=== PATIENT | female | born 1980 | race Caucasian/White ===

== ENCOUNTER → 2017-11-01 | Outpatient (CLI) | payer OTHER ==
[~2017-11-01] MED LIST: BUPR75TA PO; CYCL10TA PO; DICL75TA PO; HYDR-3583 PO; LYRI100C PO; PARO10TA2 PO; PERC10TA27 PO; PERC5TAB12 PO; PROZ20CA11 PO; SERO50TA PO; TIZA4TAB PO; TRAM50TA PO; TRAZ100T10 PO; XANA1TAB2 PO
== END ==
LOC: CPRE 11:35
PROVIDERS: ATTEND Neurological Surgery
DX: Z01.812 Encounter for preprocedural laboratory examination (principal); M50.10 Cervical disc disorder with radiculopathy, unspecified cervical region
CPT/HCPCS: 87640; 87641

== ENCOUNTER 2017-11-07 06:00 | Observation (INO) | payer OTHER ==
--- NOTE | 2017-11-06 17:30 | MH ---
cc: Kyle Brady MD, Rohit K MD DATE OF ADMISSION: 11/07/2017 DATE OF ADMISSION: 11/07/2017 ADMITTING DIAGNOSIS: Cervical radiculopathy, herniated nucleus pulposus cervical spine. HISTORY OF PRESENT ILLNESS: This is a 36-year-old female who presented to us for an evaluation of neck pain that she has had for a year without any inciting event and she states that she woke up with it. The pain radiates from her neck into the left shoulder blade area with burning and paresthesias. She also has pain that radiates into the left lateral arm, into the left anterior forearm with burning and tingling also into the fourth and fifth fingers. She has noticed weakness in the left upper extremity. She denies any bowel or bladder incontinence. She denies any difficulty with her gait. She has noticed some numbness in the right shoulder blade area, but no pain. She is right-handed. She has been to Pain Management and had injection, but states that her symptoms were a little worse after this and she held off on further injections until she saw Neurosurgery. She has been to physical therapy and has not had much relief. She has tried taking Percocet with some relief. She has tried Lyrica, which did not help. The patient is wanting to proceed with surgical intervention. PAST MEDICAL HISTORY: Positive for: 1. Depression. 2. Headaches. 3. Tubal ligation in 2004. CURRENT MEDICATIONS: 1. Alprazolam 1 mg p.o. q. 8 hours p.r.n. anxiety. 2. Trazodone 100 mg p.o. at bedtime. 3. Tizanidine 4 mg 3 times a day p.r.n. muscle spasms. 4. Paroxetine 10 mg p.o. daily. 5. [place] 10/325 p.o. every 6 hours p.r.n. pain. 6. Diclofenac 75 mg p.o. daily. ALLERGIES: SHE HAS NO KNOWN DRUG ALLERGIES. FAMILY HISTORY: Her father is alive, 50 years old, has lung cancer. Mother is at 38 years old of lung cancer. She has a brother who is alive, 27 years old and in good health. She has a sister who is alive, 38 years old in good health. 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 She is single. She has 3 kids. She smokes 1/2 a pack a day for 20 years. She rarely drinks alcohol. REVIEW OF SYSTEMS: CONSTITUTIONAL: She denies any fever or chills. EARS, NOSE AND THROAT: No pharyngitis, exudate or bloody drainage from her nose. CARDIOVASCULAR: Denies any chest pain or palpitations. RESPIRATORY: No cough or shortness of breath. GENITOURINARY: No dysuria or hematuria. MUSCULOSKELETAL: Positive for neck pain, adenopathy. SKIN: No rashes or pruritus. NEUROLOGIC: No difficulty with speech or memory. GASTROINTESTINAL: No nausea, vomiting, abdominal pain. PSYCHIATRIC: Positive for anxiety and depression symptoms. ENDOCRINE: No polyuria or polydipsia. HEMATOLOGIC: No bruising or bleeding tendencies. PHYSICAL EXAMINATION: HEENT: Head is normocephalic, atraumatic. NECK: Supple. No carotid bruits heard on auscultation. LUNGS: Clear to auscultation bilaterally. HEART: Regular rate and rhythm. Normal S1, S2. ABDOMEN: Soft, nontender, positive bowel sounds. EXTREMITIES: No cyanosis or erythema. MUSCULOSKELETAL: She has 5/5 strength in the upper extremities. She ambulates without any assistive device. She does have 4/5 strength in the left upper extremity. NEUROLOGIC: She is awake, alert, and oriented. Cranial nerves 2-12 are grossly intact. Speech is fluent. Comprehension is good. Sensation reveals hypersensitivity in the left 4th and 5th fingers otherwise intact in the upper and lower extremities. Reflexes are brisk in the upper and lower extremities. DATA: Reviewed an MRI of the cervical spine from 05/2017, which reveals a disk osteophyte complex with foraminal stenosis at C5-C6, a lesser degree of protrusions at the C4-C5 and C6-C7 levels. There is also kyphosis at C5-C6 from disk degeneration. She has a history of left ulnar neuropathy as well as lumbar disk protrusion and associated low back pain with left L5 radiculopathy. PLAN: We have discussed treatment options and the patient is wanting to proceed with surgical intervention. We have discussed with her an anterior C5-C6 microdiscectomy, a fusion and a foraminotomy as well as the risks, benefits, alternatives, and recovery time and agreed to do with the patient. We discussed the risks of surgery include but are not limited to bleeding, infection, muscle weakness, voice hoarseness, difficulty swallowing, heart attack, stroke, blood clots, nonfusion, scar tissue formation, among others. We have also discussed that this will not address her left ulnar neuropathy or low back pain with left L5 radiculopathy. No guarantees were given as to the results of the surgery. The patient understands that she may require a left ulnar nerve decompression if her symptoms progress from the ulnar neuropathy. The patient was in agreement with the treatment plan and she was therefore scheduled accordingly. MD James Merritt, PETE MARIN/VIKAS , 04:48 PM , 05:29 PM
[~2017-11-07] VITALS: Ht 166.4 cm; Wt 74.6 kg
[~2017-11-07 06:00] MED LIST changes: -CYCL10TA PO; -DICL75TA PO; -HYDR-3583 PO; -PARO10TA2 PO; -PERC10TA27 PO; -TIZA4TAB PO; -TRAZ100T10 PO
[2017-11-07] MEDS ORDERED: ACETAMINOPHEN 1000 MG/100 ML 100 ML IV ONE (06:38)
[2017-11-07] MEDS ORDERED: SODIUM CHLORID 0.9% 500 ML IV PRN (06:45)
[2017-11-07] MEDS ORDERED: LACTATED RINGER'S 1000 ML IV PRN (06:45)
[2017-11-07] MEDS ORDERED: CHLORHEXIDINE GLUCONATE 2 % 1 PACK (2 CLOTHS) TOPICAL PRN (06:45)
[2017-11-07] MEDS ORDERED: POVIDONE IODINE 5% (ANTISEPSIS KIT) 4 APPLICATIONS EACH NARE PRN (06:45)
[2017-11-07] MEDS ORDERED: METOPROLOL TARTRATE 25 MG TAB PO PRN (06:45)
[2017-11-07] MEDS ORDERED: VANCOMYCIN 1 GM/200 ML PREMIX ON-CALL IV SCH (07:00)
[2017-11-07] MEDS ORDERED: VANCOMYCIN HCL 1000 MG VIAL ONE (07:01)
[2017-11-07] MEDS ORDERED: THROMBIN (TOPICAL) 5,000 UNIT VIAL ONE (07:01)
[2017-11-07] MEDS ORDERED: GELFOAM SIZE 100 ONE (07:01)
[2017-11-07] MEDS ORDERED: PROPOFOL 500 MG/50 ML INJ 150 ML ONE (07:25)
[2017-11-07] MEDS: SODIUM CHLOR 0.9% 1000 ML INJ 1,000 ML IV SCH (11:13)
[2017-11-07] MEDS ORDERED: *MEPERIDINE 25 MG INJ VIAL PERIprocedural Use ONLY ONE (11:22)
[2017-11-07] MEDS ORDERED: NS + KCL 20 MEQ INJ 1,000 ML IV SCH (11:22)
[2017-11-07] MEDS ORDERED: MIDAZOLAM HCL 2 MG/2 ML VIAL ONE (11:22)
[2017-11-07] MEDS ORDERED: MORPHINE SULFATE 4 MG/ML INJ ONE (11:23)
[2017-11-07] MEDS ORDERED: ALPRAZolam 1 MG TAB PO PRN (11:30)
[2017-11-07] MEDS ORDERED: oxyCODONE/ACETAMINOPHEN 10 MG/325 MG TAB PO PRN (11:30)
[2017-11-07] MEDS ORDERED: SODIUM CHLORIDE 0.9% FLUSH 10 ML FLUSH IV FLUSH PRN (11:30)
[2017-11-07] MEDS ORDERED: cloNIDine HCL 0.1 MG TAB PO PRN (11:30)
[2017-11-07] MEDS ORDERED: ZOLPIDEM TARTRATE 5 MG TAB PO PRN (11:30)
[2017-11-07] MEDS ORDERED: LACTULOSE SYRUP 20 GM/30 ML CUP PO PRN (11:30)
[2017-11-07] MEDS ORDERED: RESP: ALBUTEROL 2.5 MG/3 ML NEB (PRN) NEB (11:30)
[2017-11-07] MEDS ORDERED: BISACODYL 10 MG SUPP RECTAL PRN (11:30)
[2017-11-07] MEDS ORDERED: MENTHOL LOZENGE BUCCAL PRN (11:30)
[2017-11-07] MEDS ORDERED: PROMETHAZINE INJ 25 MG/ML VIAL IM PRN (11:30)
[2017-11-07] MEDS ORDERED: ONDANSETRON HCL 4 MG/2 ML VIAL IV PUSH PRN (11:30)
[2017-11-07] MEDS ORDERED: ALUMINUM/MAGNESIUM/SIMETH 30 ML CUP PO PRN (11:30)
[2017-11-07] MEDS ORDERED: ACETAMINOPHEN 325 MG TAB PO PRN (11:30)
[2017-11-07] MEDS ORDERED: MAGNESIUM HYDROXIDE SUSP 30 ML CUP PO PRN (11:30)
[2017-11-07] MEDS ORDERED: SENNOSIDES 8.6 MG TAB PO PRN (11:30)
--- NOTE | 2017-11-07 11:30 | PD.OP ---
Jacinta Payne MD Operative Report Date of Surgery: November 07, 2017 Preoperative Diagnosis: Intractable neck pain with left C6 radiculopathy; C5-6 disc osteophyte complex with associated spinal and foraminal stenosis Postoperative Diagnosis: Same Procedure: Anterior cervical C5-6 microdiscectomy with interbody fusion; anterior C5-6 cervical plate placement; C5-6 interbody cage placement; microsurgical technique Anesthesia: General endotracheal by Cherie perez Surgeon: Kyle Brady MD Geospatial Applications Developer(s): Lisa Wong Operation and Findings: Following administration of general endotracheal anesthesia, the patient received a gram of vancomycin and Decadron 8 mg intravenously. Sequential compression devices were placed in supine position on a López table and all pressure points adequately padded. The head secured in a donut and anterior cervical region then shaved and prepped with Chloraprep and sterilely draped with Ioban along with the usual sterile draping. A transverse skin incision on the left side of the neck was then made after infiltrating the skin with 0.5% Marcaine with epinephrine solution extending down through the platysma. At the anterior border of the sternocleidomastoid further dissection was undertaken developing a plane between the carotid sheath laterally and the trachea esophagus medially. The prevertebral fascia was exposed and dissected out. The medial attachments of the longus colli muscles were detached and a self- retaining retractor used for exposure. The C5-6 disc space was localized with a marking the disc space and using lateral fluoroscopy. [place] distraction screws 14 mm length were placed one in the C5 and one in the C6 body interbody distraction and exposure. There was disc degeneration with disc height collapse and anterior osteophytes noted at the C5-6 level and the osteophytes were resected with a Leksell and annulus incised with a 15 blade and further dissection undertaken using microtechnique with microscope magnification. Diskectomy was undertaken with pituitaries and the endplates were also decorticated with curettes and drill bit. And more posteriorly there was disk osteophyte complex compressing the thecal sac along with a significant uncovertebral joint hypertrophy with foraminal stenosis particularly on the left side which was decompressed along with removal of the posterior longitudinal ligaments at both levels. The foramen was decompressed bilaterally using a Kerrison's and palpation with a nerve hook, the exiting nerve roots were felt to be free. The area was then copiously irrigated. I then placed a Peek cage packed with local autograft bone at the C5-6 interspace under fluoroscopy guidance. [place] distraction pins were removed and the holes plugged with Gelfoam for hemostasis. In order to facilitate the fusion and provide stabilization, a Precision spine solo cervical plate was then placed with a 14 mm variable angle screw in the C5 body and a 14 mm fixed angle screw in the C6 body. The plate screw locking mechanism was then engaged. AP and lateral fluoroscopy confirmed good placement of the construct and the retractor was then removed. Muscular bleeding points were cauterized with bipolar cautery and Gelfoam was then also used for hemostasis which was removed. The platysma was then approximated using 3-0 Vicryl interrupted stitches and 3-0 Vicryl subcuticular stitch also placed in an interrupted fashion, and final skin closure was with Mastisol and Steri-Strips. Sterile dressing was then applied. The patient was then extubated and taken to the recovery room. There are no intraoperative complications and all sponge and needle counts were correct at the end of procedure. Estimated blood loss was about 25 cc. The patient did undergo intraoperative neurologic monitoring which remained stable throughout the surgery. Kyle Brady MD November 07, 2017 11:29
[2017-11-07] MEDS ORDERED: LIDOCAINE HCL 1% PF 5 ML SYRINGE OTHER ONE (12:00)
[2017-11-07] MEDS ORDERED: PROPOFOL 200 MG/20 ML AMP IV ONE (12:00)
[2017-11-07] MEDS ORDERED: DEXAMETHASONE SOD PHOS 4 MG/ML VIAL IV ONE (12:00)
[2017-11-07] MEDS ORDERED: LACTATED RINGER'S 1000 ML INJ 1,000 ML IV ONE (12:00)
[2017-11-07] MEDS ORDERED: SUCCINYLCHOLINE CHLORIDE 100 MG/5 ML SYRINGE IV PUSH ONE (12:00)
[2017-11-07] MEDS ORDERED: ONDANSETRON HCL 4 MG/2 ML VIAL IV ONE (12:00)
[2017-11-07] MEDS ORDERED: ROCURONIUM INJ 50 MG/5 ML SYRINGE IV PUSH ONE (12:00)
[2017-11-07] MEDS ORDERED: *morphine SULFATE 4 MG/ML PERIprocedure ONLY ONE ×2 (12:13→13:03)
[2017-11-07 12:40] VITALS: BP 108/60; PULSE 78; RESP 20; TEMP 98.2; O2SAT 96
[2017-11-07] MEDS ORDERED: DO NOT ADM ANY ANTICOAGULANT DRUGS PRN (14:15)
[2017-11-07] MEDS: DEXAMETHASONE SOD PHOS 4 MG/ML VIAL IV PUSH SCH ×2 (14:27→19:46)
[2017-11-07] MEDS: CYCLOBENZAPRINE HCL 10 MG TAB PO PRN (14:28)
[2017-11-07] MEDS: oxyCODONE/ACETAMINOPHEN 10 MG/325 MG TAB PO PRN ×2 (14:29→19:16)
[2017-11-07 16:00] VITALS: BP 109/57; PULSE 77; RESP 20; TEMP 97.7; O2SAT 95
[2017-11-07] MEDS: MORPHINE SULFATE 4 MG/ML INJ IV PUSH PRN ×2 (17:28→21:21)
--- NOTE | 2017-11-07 18:33 | RADRPT ---
EXAM DATE/TIME: 11/07/2017 08:46 [facility] COMPARISON: No previous studies available for comparison. INDICATIONS : C5-6 Anterior cervical disc fusion. MEDICAL HISTORY : Arthritis. Gastroesophageal reflux disease. SURGICAL HISTORY : Tubal ligation. ENCOUNTER: Initial ACUITY: 1 day PAIN SCORE: Non-responsive. LOCATION: Cervical spine. FINDINGS: There is anterior plate and screw fixation across C5-6. Normal alignment. Patient intubated. CONCLUSION: 1. Fusion across C5-6. Amando Wilkins MD on November 07, 2017 at 18:30 Board Certified Radiologist. This report was verified electronically.
[2017-11-07] MEDS: DOCUSATE SODIUM 50 MG/SENNA 8.6 MG TAB PO SCH (19:45)
[2017-11-07] MEDS: SODIUM CHLORIDE 0.9% FLUSH 10 ML FLUSH IV FLUSH SCH (19:47)
[2017-11-07 20:00] VITALS: BP 106/60; PULSE 86; RESP 18; TEMP 99; O2SAT 95
[2017-11-07] MEDS ORDERED: QUEtiapine FUMARATE 100 MG TAB PO SCH (21:00)
[2017-11-08] VITALS: BP 100/56; PULSE 78; RESP 18; TEMP 98.1; O2SAT 93
[2017-11-08] MEDS: DEXAMETHASONE SOD PHOS 4 MG/ML VIAL IV PUSH SCH (02:21)
[2017-11-08] MEDS: oxyCODONE/ACETAMINOPHEN 10 MG/325 MG TAB PO PRN ×2 (02:21→09:34)
[2017-11-08] MEDS: MORPHINE SULFATE 4 MG/ML INJ IV PUSH PRN ×2 (03:15→12:00)
[2017-11-08 04:00] VITALS: BP 98/58; PULSE 73; RESP 18; TEMP 98; O2SAT 93
[2017-11-08] MEDS: SODIUM CHLOR 0.9% 1000 ML INJ 1,000 ML IV SCH (07:00)
[2017-11-08 08:16] VITALS: BP 105/61; PULSE 73; RESP 20; TEMP 98.5; O2SAT 96
[2017-11-08] MEDS ORDERED: PANTOPRAZOLE SOD 40 MG DELAYED RELEASE TAB PO SCH (09:00)
[2017-11-08] MEDS ORDERED: buPROPion HCL 75 MG TAB PO SCH (09:00)
[2017-11-08] MEDS ORDERED: FLUoxetine HCL 20 MG CAP PO SCH (09:00)
[2017-11-08] MEDS: SODIUM CHLORIDE 0.9% FLUSH 10 ML FLUSH IV FLUSH SCH (09:00)
[2017-11-08] MEDS: DOCUSATE SODIUM 50 MG/SENNA 8.6 MG TAB PO SCH (09:34)
[2017-11-08] MEDS: CYCLOBENZAPRINE HCL 10 MG TAB PO PRN (09:34)
--- NOTE | 2017-11-08 09:56 | HHI.NSPN ---
(James Arias) History Chief Complaint: Sore throat. (James Arias) Interval History 11/08/17: Pt status post C5/C6 anterior cervical fusion with interbody cage and plate placement. She complains of significant sore throat. She states she is taking throat lozenges, Morphine and Percocet 10/325 two tablets and is still uncomfortable. She has some neck discomfort also. No radiculopathy in UEs. She has some residual LUE weakness as expected. She was able to swallow food but painful. No difficulty breathing. (James Arias) Review of Systems General: Negative for: fever, chills, insomnia Respiratory: Negative for: shortness of breath, cough, sputum Cardiovascular: Negative for: chest pain Gastrointestinal: Negative for: nausea, vomitting, diarrhea, constipation ( James Arias) Exam Results Vital Signs Date Time Temp Pulse Resp B/P (MAP) Pulse Ox O2 Delivery O2 Flow Rate FiO2 11/08/17 08:16 98.5 73 20 105/61 (76) 96 11/07/17 13:13 Nasal Cannula 2 (James Arias) Physical Examination General: Pt awake and alert. Sitting up in bed appearing uncomfortable. Eyes: Pupils equal. Sclera anicteric. Resp: CTA bilaterally Heart: NSR no murmurs Abd: Soft positive bs Skin: Incision clean and dry. new bandage placed. Muscle: Moves all 4 extremities. Weakness with LUE 4/5 compared to right. Pt ambulates short distance to bathroom. Neuro: Pt awake and alert. She follows commands well. Speech clear and appropriate but soft. Sensation intact in UEs. (James Arias) Lab, Micro, Other Results Last Impressions Cervical Spine X-Ray 11/07/17 0000 Signed Impressions: Service Date/Time: Tuesday, November 07, 2017 08:46 - CONCLUSION: 1. Fusion across C5-6. Amando Wilkins MD (James Arias) Medical Decision Making Impression and Plan A: 36 y/o FM s/p C5/C6 ACF with cervical plate placement. P: Continue with pain control. Continue to encourage ambulation. Pt may benefit from one time dose of toradol IM if pain not improving. (James Arias) Attending Statement The exam, history, and the medical decision-making described in the above note were completed with the assistance of the mid-level provider. I reviewed and agree with the findings presented. I attest that I had a [id number] encounter with the patient on the same day, and personally performed and documented my assessment and findings in the medical record. (Kyle Brady MD) James Arias November 08, 2017 09:56 Kyle Brady MD November 08, 2017 18:05
[2017-11-08] MEDS ORDERED: KETOROLAC TROMETHAMINE 60 MG/2 ML (IM) VIAL IM ONE (10:00)
[2017-11-08 11:57] VITALS: BP 105/64; PULSE 78; RESP 18; TEMP 98.6; O2SAT 95
[2017-11-08 16:11] VITALS: BP 104/65; PULSE 71; RESP 18; TEMP 98.7; O2SAT 97
[2017-11-08] MEDS ORDERED: CYCL10TA PO (18:04)
[2017-11-08] MEDS ORDERED: PERC10TA27 PO (18:04)
== END 2017-11-08 19:02 | disposition home or self-care (01) ==
LOC: HSDC 06:00 → HSDI 11:25 → N05B 13:25
PROVIDERS: ADMIT Neurological Surgery; ATTEND Neurological Surgery
DX: M54.12 Radiculopathy, cervical region (principal); M48.02 Spinal stenosis, cervical region; M25.78 Osteophyte, vertebrae; J02.9 Acute pharyngitis, unspecified; M62.81 Muscle weakness (generalized); K21.9 Gastro-esophageal reflux disease without esophagitis; F32.9 Major depressive disorder, single episode, unspecified; M19.90 Unspecified osteoarthritis, unspecified site; F17.200 Nicotine dependence, unspecified, uncomplicated
CPT/HCPCS: 00600; 20936; 22551; 22853; 72040; 76000; 94150; 96361; 96365; 96366; 96372; 96375; 96376; C1713; G0378; J0131; J0330; J0690; J1100; J1885; J2175; J2250; J2270; J2405; J3010; J3370; J3480; J7030; J7120